=== PATIENT | female | born 1965 | race Caucasian/White ===

== ENCOUNTER 2020-03-28 18:44 | Emergency (ER) | payer BC ==
--- NOTE | 2020-03-28 19:03 | ER Document Report ---
ED Medical Screen (RME) - General Chief Complaint: Chest Pain Stated Complaint: CHEST PAIN Time Seen by Provider: 03/28/20 18:54 - HPI Notes: 03/28/20 19:02 54-year-old female with past medical history of fibromyalgia, venous insu fficiency, hyperlipidemia to the emergency department with complaints of midsternal chest pain that radiated through to her back that began just prior to arrival with associated shortness of breath, nausea and diaphoresis. She states it lasted several minutes and then it passed. Denies any cough, vomiting, arm pain, passing out, lightheadedness, dizziness. She has never had a heart attack before. Her father had a heart attack at age 70. She is not on any exogenous hormones. She denies any leg swelling. Admits to history of a thyroid disorder but she is not sure exactly what is going on with her thyroid. She does admit that her heart is been beating a little bit faster lately. I performed a brief medical screening exam on the patient determined that the patient needs further evaluation and management by main side provider. I have placed initial orders to help expedite care.
[2020-03-28 19:10] VITALS: BP 122/43
--- NOTE | 2020-03-28 19:35 | RADIOLOGY REPORT (SQ) ---
EXAM DESCRIPTION: CHEST 2 VIEWS IMAGES COMPLETED DATE/TIME: 03/28/2020 7:20 pm REASON FOR STUDY: chest pain COMPARISON: None. EXAM PARAMETERS: NUMBER OF VIEWS: two views TECHNIQUE: Digital Frontal and Lateral radiographic views of the chest acquired. RADIATION DOSE: NA LIMITATIONS: none FINDINGS: LUNGS AND PLEURA: No opacities, masses or pneumothorax. No pleural effusion. MEDIASTINUM AND HILAR STRUCTURES: No masses or contour abnormalities. HEART AND VASCULAR STRUCTURES: Heart normal size. No evidence for failure. BONES: No acute findings. HARDWARE: None in the chest. OTHER: No other significant finding. IMPRESSION: NO ACUTE RADIOGRAPHIC FINDING IN THE CHEST. TECHNICAL DOCUMENTATION: JOB ID: [id number] 2010 [employer]- All Rights Reserved Reading location - IP/workstation name: [email or web address]
--- NOTE | 2020-03-28 19:48 | EKG REPORT ---
SEVERITY:- BORDERLINE ECG - SINUS TACHYCARDIA BORDERLINE T ABNORMALITIES, ANT-LAT LEADS : Confirmed by: Heath Salgado MD 28-Mar-2020 19:48:33
[2020-03-28 19:58] LABS: ABSOLUTE BASOPHILS # (AUTO) 0.1 10^3/uL (0.0-0.2); ABSOLUTE EOSINOPHILS # (AUTO) 0.1 10^3/uL (0.0-0.6); ABSOLUTE LYMPHOCYTES (AUTO) 3.3 10^3/uL (0.5-4.7); ABSOLUTE MONOCYTES (AUTO) 0.7 10^3/uL (0.1-1.4); ABSOLUTE NEUT (AUTO) 5.4 10^3/uL (1.7-8.2); BASOPHILS % (AUTO) 0.8 % (0-2); EOSINOPHILS % (AUTO) 1.5 % (0-6); HEMATOCRIT 40.1 % (36.0-47.0); HEMOGLOBIN 13.6 g/dL (12.0-15.5); LYMPHOCYTES % (AUTO) 34.6 % (13-45); MEAN CORPUSCULAR HEMOGLOBIN 28.2 pg (27.0-33.4); MEAN CORPUSCULAR VOLUME 83 fl (80-97); MONOCYTES % (AUTO) 7.1 % (3-13); PLATELET COUNT 427 10^3/uL (150-450); RED BLOOD COUNT 4.83 10^6/uL (3.72-5.28); RED CELL DISTRIBUTION WIDTH 12.6 % (11.5-14.0); TOTAL CELLS COUNTED % (AUTO) 100 %; WHITE BLOOD COUNT 9.6 10^3/uL (4.0-10.5)
[2020-03-28 20:08] LABS: ALBUMIN 4.5 g/dL (3.5-5.0); ALKALINE PHOSPHATASE 85 U/L (38-126); ANION GAP 12 (5-19); ASPARTATE AMINO TRANSFERASE 34 U/L (14-36); BILIRUBIN,DIRECT 0.1 mg/dL (0.0-0.4); BILIRUBIN,TOTAL 0.4 mg/dL (0.2-1.3); BLOOD UREA NITROGEN 17 mg/dL (7-20); CARBON DIOXIDE 25 mmol/L (22-30); CHLORIDE 103 mmol/L (98-107); GLUCOSE 116 mg/dL (75-110); POTASSIUM 4.3 mmol/L (3.6-5.0); TOTAL PROTEIN 7.4 g/dL (6.3-8.2)
[2020-03-28] MEDS ORDERED: ASPIRIN 81 MG TABLET, CHEWABLE PO ONE (21:20)
--- NOTE | 2020-03-28 21:26 | ER Document Report ---
ED Cardiac - General Chief Complaint: Chest Pain Stated Complaint: CHEST PAIN Time Seen by Provider: 03/28/20 18:54 - HPI Notes: Patient is a 54-year-old female with a past medical history of hyperlipidemia and fibromyalgia who presents with chest pain. Patient states that symptoms began around 6 PM. The chest pain lasted for about 10 minutes. She describes it as a sharp midsternal pain that radiated to her right shoulder and to her right back. She states that she had some pleuritic pain when it occurred. She was also diaphoretic and nauseous. Currently, she states that her symptoms have resolved. She states this happened to her several years ago and she wore a Holter monitor which did not show anything. She reports that she recently drove from [place] yesterday and was in the car for 7-1/2 hours but did take breaks. She denies any leg swelling. No previous history of PE or DVT. She is a non-smoker. - Related Data Allergies/Adverse Reactions: levofloxacin [From Levaquin] Allergy (Verified 03/28/20 21:37) Sulfa (Sulfonamide Antibiotics) Allergy (Verified 03/28/20 21:37) Past Medical History - General Information source: Patient, Relative - Social History Smoking Status: Never Smoker Family History: CAD Patient has homicidal ideation: No Review of Systems - Review of Systems Notes: CONSTITUTIONAL: No fever, fatigue or weight loss. SKIN: No rash. HENT: No congestion, ear pain, or sore throat. EYES: No recent vision problems or eye pain. ENDOCRINE: No thyroid problems. No polyuria or polydipsia. CARDIOVASCULAR: Positive for chest pain. RESPIRATORY: No cough, shortness of breath, congestion, or wheezing. GASTROINTESTINAL: No abdominal pain, vomiting, bloody stools or diarrhea. Positive for nausea. GENITOURINARY: No dysuria. MUSCULOSKELETAL: No joint pain or swelling. LYMPHATIC: No swollen glands. NEUROLOGIC: No seizures. No headache, focal weakness or sensory changes. HEMATOLOGIC: No unusual bruising or bleeding. PSYCHIATRIC: No depression or anxiety. Physical Exam - Vital signs Vitals: Temp Pulse Resp BP Pulse Ox 98.7 F 115 H 18 122/43 L 100 03/28/20 19:09 03/28/20 19:09 03/28/20 19:09 03/28/20 19:09 03/28/20 19:09 - General General appearance: Appears well Notes: VITAL SIGNS: Within normal limits. GENERAL: No acute distress, non-toxic appearance. HEAD: Normal with no signs of head trauma. EYES: EOMI, conjunctiva normal, no discharge. EARS: Hearing grossly intact. NOSE: Normal. NECK: Normal range of motion, no tenderness, supple, no lymphadenopathy, No adenopathy, no JVD. CHEST: Clear breath sounds bilaterally. No wheezes, rales, or rhonchi. CARDIAC: Regular rate and rhythm. S1 and S2, without murmurs, gallops, or rubs. VASCULAR: No Edema. Peripheral pulses normal and equal in all extremities. ABDOMEN: Normal and soft with no tenderness, no masses or pulsatile masses. GASTROINTESTINAL: Bowel sounds normal GENITOURINARY: Normal, No tenderness LYMPATHTIC: No lymphadenopathy noted. MUSCULOSKELETAL: Good range of motion of all major joints. Extremities without clubbing, cyanosis or edema. NEUROLOGICAL: Alert and oriented x 3. No focal sensory or strength deficits. Speech normal. Follows commands appropriately. PSYCHIATRIC: Normal Affect, judgement and mood. SKIN: Normal appearance with no rashes or lesions. Course - Re-evaluation Re-evalutation: 03/28/20 21:25 As patient symptoms just began tonight. I did discuss with her staying for second troponin. I will also obtain a D-dimer due to her recent long travel. Patient is very agreeable to the plan. She is resting comfortably. 03/28/20 23:17 Patient's heart score is 3. She had 2 negative troponins and a negative D-dimer so I have a low suspicion for PE. Patient also had 2 EKGs that do not show any acute changes. Given aspirin. Patient states her chest pain is resolved. She feels comfortable going home. Patient is from out of town. She has a family doctor in [place]. I did inform her that she needs to follow-up with them when she gets back into town in a couple days. If she has any return of symptoms, she must come back to the ER immediately. Patient and her daughter are very agreeable to the plan. 03/29/20 00:26 03/29/20 00:27 - Vital Signs Vital signs: Temp Pulse Resp BP Pulse Ox 98.7 F 115 H 16 122/43 L 96 03/28/20 19:09 03/28/20 19:09 03/29/20 00:00 03/28/20 19:09 03/29/20 00:00 - Laboratory Result Diagrams: 03/28/20 19:39 03/28/20 19:39 Laboratory results interpreted by me: 03/28/20 19:39 Glucose 116 H ALT 40 H - Diagnostic Test Radiology reviewed: Image reviewed, Reports reviewed - EKG Interpretation by Me EKG shows normal: Sinus rhythm Rate: Tachycardia When compared to previous EKG there are: Previous EKG unavailable Additional EKG results interpreted by me: 03/28/20 21:25 Sinus tachycardia at a rate of 102. QTc 454. No acute ST changes. No previous EKG available for comparison. 03/29/20 00:27 Repeat EKG shows a sinus rhythm at a rate of 94. QTc 466. No acute ST changes. Discharge - Discharge Clinical Impression: Chest pain Qualifiers: Chest pain type: unspecified Qualified Code(s): R07.9 - Chest pain, unspecified Condition: Stable Disposition: HOME, SELF-CARE Instructions: Chest Pain of Unclear Cause ([facility]) Additional Instructions: Please follow-up with your family doctor. Please return to the ER for any return of chest pain, shortness of breath, dizziness, nausea, any other concerning symptoms.
--- NOTE | 2020-03-29 16:45 | EKG REPORT ---
SEVERITY:- BORDERLINE ECG - SINUS RHYTHM BORDERLINE T ABNORMALITIES, ANT-LAT LEADS : Confirmed by: Heath Salgado MD 29-Mar-2020 16:44:05
== END 2020-03-29 00:06 | disposition home or self-care (01) ==
LOC: ER 18:44
DX: R07.81 Pleurodynia (principal); R61 Generalized hyperhidrosis; R11.0 Nausea; R00.0 Tachycardia, unspecified; Z88.1 Allergy status to other antibiotic agents; Z88.2 Allergy status to sulfonamides; Z82.49 Family history of ischemic heart disease and other diseases of the circulatory system
CPT/HCPCS: 36415; 71046; 80053; 84443; 84484; 85025; 85379; 93005; 93010; 99285